=== PATIENT | male | born 1990 | race Caucasian/White ===

== ENCOUNTER 2024-03-17 11:17 | Inpatient (IN) | payer MEDICAID, OTHER ==
[2024-03-17] MEDS ORDERED: MAGNESIUM HYDROXIDE 2,400 MG/30 ML CUP PO PRN (16:44)
[2024-03-17] MEDS ORDERED: MAG HYDROX/AL HYDROX/SIMETH 355 ML BOTTLE PO PRN (16:44)
[2024-03-17] MEDS ORDERED: hydrOXYzine HCL 50 MG/ML 1 ML VIAL IM PRN (16:58)
[2024-03-17] MEDS ORDERED: HALOPERIDOL LACTATE 5 MG/ML 1 ML VIAL IM PRN (16:58)
[2024-03-17] MEDS: VENLAFAXINE HCL 75 MG TAB PO SCH (22:45)
[2024-03-17] MEDS: hydrOXYzine HCL 25 MG TAB PO PRN (22:46)
[2024-03-17] MEDS: MIRTAZAPINE 15 MG TAB PO PRN (22:46)
[2024-03-17] MEDS: NICOTINE 21MG/24HR PATCH TRANSDERM SCH (22:47)
[2024-03-17 23:33] LABS: Appearance,Urine Clear (Clear); Bilirubin,Urine Negative (Negative); Blood,Urine Negative (Negative); Color,Urine Light Yellow; Glucose,Urine (UA) Negative (Negative); Ketones,Urine Negative (Negative); Leukocyte Esterase,Urine Negative (Negative); Nitrite,Urine Negative (Negative); PH, Urine 7.5 (5.0-8.0); Protein,Urine Negative (Negative); Specific Gravity,Urine 1.017 (1.001-1.035); Urobilinogen,Urine <2.0 mg/dL (<2.0)
[2024-03-18] MEDS: IBUPROFEN 600 MG TAB PO PRN (01:15)
--- NOTE | 2024-03-18 02:57 | P.CONS ---
History of Present Illness - Reason for Consult Consult date: 03/18/24 - History of Present Illness The patient is a 33-year-old male with a PMH of polysubstance abuse who had presented to the emergency room with complaints of depression and suicidal ideation. The patient reports that he has been struggling with a substance use with both fentanyl and cocaine. Patient does report that he lost both of his parents roughly a year ago to be above substances. Denies alcohol or tobacco use. 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 He denies any additional complaints at time of interview. Denied experiencing chest discomfort, shortness of breath, fever, chills, cough, nausea, vomiting, abdominal pain, diarrhea. He did request the Robaxin for chronic low back pain. Review of systems: Pertinent positives and negatives as discussed in HPI, a complete review of systems was performed and all other systems are negative. Physical examination: General: non toxic, no distress, appears at stated age, overweight Derm: no unusual rashes/lesions, no unusual ecchymoses, warm, dry Head: atraumatic, normocephalic, symmetric Eyes: EOMI, no lid lag, anicteric sclera ENT: Nose and ears atraumatic, no thrush, no pharyngeal erythema Neck: trachea midline, supple Mouth: no lip lesion, mucus membranes moist Cardiovascular: S1S2 reg, no murmur, no edema Lungs: CTA bilateral, no rhonchi, no rales , no accessory muscle use Abdominal: soft, nontender to palpation, no guarding Ext: no gross muscle atrophy, no contractures, Neuro: No gross focal neuro deficits noted Psych: Alert, oriented, appropriate affect Assessment: Chronic low back pain Polysubstance abuse Depression and suicidal ideation Plan: Patient started on Robaxin 500 mg p.o. 4 times daily as needed Advised on importance of cessation from substance use Defer management of depression and suicidal ideation to the primary psychiatry service Thank you for allowing us to participate in the care of this patient. We will follow peripherally. Do not hesitate to contact us with questions. Someone can be reached from the [facility] hospitalist group at all hours of the day at [phone]. Past Medical History Past Medical History: No Reported History History of Any Multi-Drug Resistant Organisms: None Reported Past Surgical History: Orthopedic Surgery Additional Past Surgical History / Comment(s): Lithotripsy on L Kidney for kidney stone 2008, scope L knee 2008, R hand reconstruction 2022 Past Anesthesia/Blood Transfusion Reactions: No Reported Reaction Smoking Status: Current every day smoker, Vaper - Past Family History Mother Additional Family Medical History / Comment(s): OD on fentenyl 2022 Medications and Allergies Home Medications Medication Instructions Recorded Confirmed Type Buprenorphine-Nalox 8-2 mg Tab mg SUBLINGUAL BID 03/18/24 History [Suboxone 8-2 mg Tab] Allergies Allergy/AdvReac Type Severity Reaction Status Date / Time No Known Allergies Allergy Verified 03/17/24 16:43 Physical Exam Vitals: Vital Signs Temp Pulse Resp BP Pulse Ox 03/17/24 22:50 98.0 F 85 16 148/81 98 Intake and Output 03/17/24 03/17/24 03/18/24 14:59 22:59 06:59 Other: Weight 94.007 kg
[2024-03-18] MEDS ORDERED: NICOTINE 14MG/24HR PATCH TRANSDERM SCH (09:00)
[2024-03-18] MEDS: BUPRENORPHINE SUBLINGUAL SCH (09:57)
[2024-03-18] MEDS: NALOXONE SUBLINGUAL SCH (09:57)
[2024-03-18] MEDS: [UNRECOGNIZED DRUG - OTHER] SUBLINGUAL SCH (09:57)
[2024-03-18] MEDS: DIVALPROEX 500 MG TABLET.DR PO SCH (13:08)
[2024-03-18] MEDS: QUEtiapine 25 MG TAB PO SCH (13:08)
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
[2024-03-18] MEDS: methocarbamoL 500 MG TAB PO PRN (18:20)
[2024-03-18] MEDS: haloperidoL 5 MG TAB PO PRN (18:23)
[2024-03-18] MEDS: QUEtiapine 50 MG TAB PO STA (20:58)
[2024-03-18] MEDS: ACETAMINOPHEN TAB 325 MG TAB PO PRN (22:20)
[2024-03-19] MEDS: VENLAFAXINE HCL ER 75 MG CAP PO SCH (08:15)
--- NOTE | 2024-03-19 16:18 | P.PN ---
Progress Note - Text Interval History: Patient was seen in the hallway and was directable and agreeable to speak with health science writer in the office. He reports ongoing concern regarding anxiety, feels mood is "anxious" today and endorses having panic attacks twice per day on average. He explained that gabapentin has been helpful for his nerve pain and anxiety in the past and feels that Seroquel actually makes him feel more anxious and jittery and would prefer not to take it. We discussed that he ran out of his home supply of Suboxone and will be transition to the hospital supply; the equivalent dose is one of the 8 mg/2 mg tablets twice daily. He endorses having suicidal thoughts at times feels he would be "better off" he denies intent or plan to act on those thoughts. He also denies experiencing homicidal ideation, intent, or plan. He is not having any visual hallucinations but does have auditory hallucinations of "random different people" he denies any negative voices or receiving commands. Patient denies any side effects from the medications (aside from Seroquel) and has been compliant with meds. Mental Status Exam: General Appearance: Patient appears to be stated age is alert, directable, and cooperative. Behavior: Patient is seated with mild psychomotor agitation, frequently bouncing his knee and some fidgeting. Speech: Patient's speech is fluent and nonpressured. Mood/Affect: Mood is "anxious", affect is congruent and constricted. Suicidality/Homicidality: Patient denies having any suicidal or homicidal ideation intent or plan. Perceptions: Patient denies any visual hallucinations and has been having auditory hallucinations of "random different people" Though content/process: There is no evidence of any delusional thought content and thought process is linear and goal-directed. Memory and concentration: AOX3, grossly intact for the purposes of this session Judgment and insight: Improving mildly Assessment: Bipolar disorder, current episode depressed Anxiety, unspecified Opiate use disorder Cocaine use disorder Nicotine dependence PLAN: -Patient is admitted under voluntary status to MHU for stabilization of psy chiatric symptoms and safety. Patient has signed adult voluntary form and medication consent and is placed in patient's chart. -Medications: - Continue Effexor XR to 225 mg daily for depression/anxiety - Patient requested to discontinue Seroquel 25 mg twice daily due to it making him feel more jittery and anxious; will trial Propranolol 20 mg BID for anxiety given significant psychomotor component and stable blood pressure (discussed risk of hypotension and need to rise slowly from lying/seating positions to standing; also encouraged hydration and to notify staff if dizziness occurs) - Continue Depakote 500 mg twice daily for mood stabilization - Patient ran out of home supply of Buprenophine and was transitioned to hospital supply; equivalent dose of home medication Zubsolv 5.7mg/1.4mg 1 tab BID is Suboxone 8mg/2mg 1 tab BID - Atarax and Haldol PRN for agitation/aggression - Patient was counselled on substance abuse and desired to cut back on use-Will offer patient subtance use rehab - Patient was informed of the risks, benefits and side effects of the medication and patient verbally consented to taking the medications. Patient signed med consent form and was placed in chart. -Internal Medicine consult to perform medical evaluation and physical. -NRT -nicotine patch and gum due to high nicotine consumption via vaping -SW on board for discharge planning. Encourage patient to participate in groups to work on coping skills.
[2024-03-19] MEDS: NICOTINE GUM (POLACRILEX) 2 MG GUM BUCCAL PRN (16:43)
[2024-03-19] MEDS: PROPRANOLOL 20 MG TAB PO SCH (20:29)
[2024-03-19] MEDS: BUPRENORPHINE-NALOX 8-2 MG TAB 1 EACH TAB.SUBL SL SCH (20:29)
[2024-03-19] MEDS ORDERED: BUPRENORPHINE-NALOX 8-2 MG TAB 1 EACH TAB.SUBL SL SCH (21:00)
[2024-03-20] MEDS ORDERED: BUPRENORPHINE-NALOX 8-2 MG TAB 1 EACH TAB.SUBL SL SCH (09:00)
--- NOTE | 2024-03-20 14:13 | P.PN ---
Progress Note - Text Interval History: Patient was seen in the hallway and was directable and agreeable to speak with health science writer in the office. He reports feeling "better" today and notices improvement in his mood today. He does not have any concerns or issues with side effects at present. He denies suicidal ideation, intent, or plan. He also denies experiencing homicidal ideation, intent, or plan. He is not having any auditory or visual hallucinations today, which is an improvement. Patient denies any side effects from the medications and has been compliant with meds. Mental Status Exam: General Appearance: Patient appears to be stated age is alert, directable, and cooperative. Behavior: Patient is seated with mild psychomotor agitation, frequently bouncing his knee and some fidgeting. Speech: Patient's speech is fluent and nonpressured. Mood/Affect: Mood is "anxious", affect is congruent and constricted. Suicidality/Homicidality: Patient denies having any suicidal or homicidal ideation intent or plan. Perceptions: Patient denies any visual hallucinations and has been having auditory hallucinations of "random different people" Though content/process: There is no evidence of any delusional thought content and thought process is linear and goal-directed. Memory and concentration: AOX3, grossly intact for the purposes of this session Judgment and insight: Improving mildly Assessment: Bipolar disorder, current episode depressed Anxiety, unspecified Opiate use disorder Cocaine use disorder Nicotine dependence PLAN: -Patient is admitted under voluntary status to MHU for stabilization of psychiatric symptoms and safety. Patient has signed adult voluntary form and medication consent and is placed in patient's chart. -Medications: - Continue Effexor XR to 225 mg daily for depression/anxiety - Continue Propranolol 20 mg BID for anxiety (patient requested to discontinue Seroquel 25 mg twice daily due to it making him feel more jittery and anxious) - Continue Depakote 500 mg twice daily for mood stabilization - Patient ran out of home supply of Buprenophine and was transitioned to hospital supply; equivalent dose of home medication Zubsolv 5.7mg/1.4mg 1 tab BID is Suboxone 8mg/2mg 1 tab BID - Atarax and Haldol PRN for agitation/aggression - Patient was counselled on substance abuse and desired to cut back on use. Will offer patient subtance use rehab. -NRT -nicotine patch and gum due to high nicotine consumption via vaping -SW on board for discharge planning. Encourage patient to participate in groups to work on coping skills.
--- NOTE | 2024-03-21 12:55 | P.PN ---
Progress Note - Text Progress Note Date: 03/21/24 Interval History: Patient was seen wandering the hallways and was directable and agreeable to sp james with chief writer in the office. He states feeling "tired" today. He states restlessness has improved since switching Seroquel to propranolol he reports improvement in anxiety as well. He however does report feeling anxious directly related to discharge planning as he is homeless however given his recent relapse he is on board with going to rehab upon discharge. He reports some cravings for opiates but overall reporting stability. At this time patient denies any suicidal or homicidal ideations, intent or plan. Patient denies any auditory, visual hallucinations and denies any paranoia or delusions. Patient denies any side effects from the medications and has been compliant with meds. Mental Status Exam: General Appearance: Patient appears to be stated age is alert, directable, and cooperative. Behavior: There is evidence of psychomotor restlessness Speech: Patient's speech is fluent and nonpressured. Mood/Affect: Mood is improving mildly, affect is congruent and constricted. Suicidality/Homicidality: Patient denies having any suicidal or homicidal ideation intent or plan. Perceptions: Patient denies any visual hallucinations and denies any auditory hallucinations Though content/process: There is no evidence of any delusional thought content and thought process is linear and goal-directed. Memory and concentration: AOX3, grossly intact for the purposes of this session Judgment and insight: Improving mildly Assessment Bipolar disorder, current episode depressed Anxiety, unspecified Opiate use disorder Cocaine use disorder Nicotine dependence Plan: -Patient continues to meet criteria for inpatient psychiatric admission for symptom stabilization and safety. Patient has signed adult voluntary form and medication consent and was placed in patient's chart. -Medications: Continue Effexor XR to 25 mg daily for depression/anxiety, propranolol 20 mg twice daily for anxiety, Depakote 500 mg twice daily for mood stabilization -When necessary Atarax and Haldol for agitation/aggression. -Labs: Reviewed -NRT -nicotine patch and gum -SW on board for discharge planning. Encouraged the patient to participate in milieu. Anticipate discharge to rehab mid-late this week, pending bed availability. Given patient's recent suicide attempt via substances, there are concerns with patient being discharged to the streets prior to rehab being set up.
[2024-03-22 07:07] VITALS: BP 111/74; PULSE 51; RESP 16; TEMP 97.5
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
== END 2024-03-22 13:17 | disposition other institution (70) | DRG 753 ==
LOC: 3MHU 22:05
PROVIDERS: ADMIT Psychiatry & Neurology Psychiatry; ATTEND Psychiatry & Neurology Psychiatry
DX: F31.30 Bipolar disorder, current episode depressed, mild or moderate severity, unspecified (principal); F11.10 Opioid abuse, uncomplicated; F14.10 Cocaine abuse, uncomplicated; F17.290 Nicotine dependence, other tobacco product, uncomplicated; F41.9 Anxiety disorder, unspecified; T14.91XA Suicide attempt, initial encounter; R44.0 Auditory hallucinations; G89.29 Other chronic pain; M54.50 Low back pain, unspecified; F19.10 Other psychoactive substance abuse, uncomplicated; Z59.00 Homelessness unspecified; Z56.0 Unemployment, unspecified; Z87.442 Personal history of urinary calculi
CPT/HCPCS: 81003; 83036; 84443